=== PATIENT | female | born 1990 | race Caucasian/White ===

== ENCOUNTER 2018-07-07 14:35 | Inpatient (IN) | payer BC ==
[2018-07-07] MEDS ORDERED: LACTATED RINGER'S 1,000 ML IV (15:11)
[2018-07-07 15:18] LABS: ADD MAN DIFF? NO
[2018-07-07 15:21] LABS: BASOPHIL # 0.1 10^3/ul (0.0-0.1); BASOPHILS % 0.3 % (0.0-2.0); EOSINOPHILS # 0.2 10^3/ul (0.0-0.5); EOSINOPHILS % 0.9 % (0.0-7.0); HEMATOCRIT 40.3 % (37.0-47.0); LYMPHOCYTES # 1.6 10^3/ul (0.8-2.9); LYMPHOCYTES % 9.7 % (15.0-51.0); MEAN CORPUSCULAR HEMOGLOBIN 27.3 pg (29.0-33.0); MEAN CORPUSCULAR HGB CONC 32.3 g/dl (32.0-37.0); MEAN CORPUSCULAR VOLUME 84.5 fl (82.0-101.0); MONOCYTE # 1.1 10^3/ul (0.3-0.9); MONOCYTES % 6.5 % (0.0-11.0); NEUTROPHIL # 13.7 10^3/ul (1.6-7.5); NEUTROPHILS % 81.9 % (39.0-77.0); PLATELET COUNT 206 10^3/UL (140-415); RED BLOOD COUNT 4.77 10^6/ul (4.20-5.40); RED CELL DISTRIBUTION WIDTH 13.6 % (11.5-14.5)
[2018-07-07 15:21] LABS: WHITE BLOOD COUNT 16.7 10^3/ul (4.8-10.8)
[2018-07-07] MEDS ORDERED: IBUPROFEN 600 MG TAB PO (15:30)
[2018-07-07] MEDS ORDERED: MISOPROSTOL 200 MCG TAB PR ×2 (15:30→19:00)
[2018-07-07] MEDS ORDERED: BUTORPHANOL 2 MG INJ IV (15:30)
[2018-07-07] MEDS ORDERED: LIDOCAINE 1% (MPF) 30 ML INJ INJ (15:30)
[2018-07-07] MEDS ORDERED: CARBOPROST 250 MCG INJ IM ×2 (15:30→19:00)
[2018-07-07] MEDS ORDERED: METHYLERGONOVINE 0.2 MG INJ IM ×2 (15:30→19:00)
[2018-07-07] MEDS ORDERED: BUTORPHANOL 1 MG INJ IV (15:30)
[2018-07-07] MEDS ORDERED: OXYTOCIN 30 UNITS/LR 500 ML IV ×3 (15:30→19:00)
[2018-07-07 15:35] LABS: INR 0.92; PROTIME 12.4 Sec (11.9-14.9)
[2018-07-07 15:36] LABS: PARTIAL THROMBOPLASTIN TIME 28.7 Sec (23.0-35.0)
[2018-07-07] MEDS ORDERED: FENTAnyl 2MCG/ML-ROPIV 0.2% 100 ML (15:38)
[2018-07-07] MEDS: LACTATED RINGER'S 1,000 ML IV ×2 (16:08→16:13)
[2018-07-07 16:10] LABS: HEPATITIS B SURFACE ANTIGEN NEGATIVE (NEGATIVE)
[2018-07-07] MEDS ORDERED: FENTAnyl 2MCG/ML-ROPIV 0.2% 100 ML BAG EPI (16:30)
[2018-07-07] MEDS ORDERED: ONDANSETRON 4 MG INJ IV ×2 (16:30→19:00)
[2018-07-07] MEDS ORDERED: DIPHENHYDRAMINE 50 MG INJ IV ×2 (16:30→19:00)
[2018-07-07] MEDS ORDERED: NALOXONE (0.4 MG/ML) INJ IV (16:30)
[2018-07-07 17:15] LABS: RAPID PLASMA REAGIN NONREACTIVE (NR)
[2018-07-07] MEDS: OXYTOCIN 30 UNITS/LR 500 ML IV ×2 (18:53→18:55)
[2018-07-07] MEDS ORDERED: ACETAMINOPHEN 325 MG TAB PO ×2 (19:00)
[2018-07-07] MEDS ORDERED: ONDANSETRON 4 MG TAB PO (19:00)
[2018-07-07] MEDS ORDERED: SENNA/DOCUSATE NA (8.6MG/50MG) TAB PO (19:00)
[2018-07-07] MEDS ORDERED: HYDROCODONE/APAP (5/325) TAB PO ×2 (19:00)
[2018-07-07] MEDS ORDERED: DIPHENHYDRAMINE 25 MG CAP PO (19:00)
[2018-07-07] MEDS: BENZOCAINE 20% 56 ML SPRAY TOP (23:26)
[2018-07-07] MEDS: LANOLIN HPA 1 PKT TOP (23:26)
[2018-07-07] MEDS: DIBUCAINE 1% 30 GM OINT TOP (23:27)
[2018-07-07] MEDS: LACTATED RINGER'S 1,000 ML IV* (23:33)
[2018-07-07] MEDS: IBUPROFEN 800 MG TAB PO (23:50)
[2018-07-08] MEDS: LACTATED RINGER'S 1,000 ML IV* ×3 (02:54→18:54)
[2018-07-08] MEDS: IBUPROFEN 800 MG TAB PO ×4 (05:55→23:41)
[2018-07-08 08:21] LABS: ADD MAN DIFF? NO
[2018-07-08 08:36] LABS: BASOPHILS % 0.3 % (0.0-2.0); EOSINOPHILS # 0.2 10^3/ul (0.0-0.5); EOSINOPHILS % 1.5 % (0.0-7.0); HEMATOCRIT 32.1 % (37.0-47.0); HEMOGLOBIN 10.4 g/dl (12.0-16.0); LYMPHOCYTES % 16.2 % (15.0-51.0); MEAN CORPUSCULAR HEMOGLOBIN 27.8 pg (29.0-33.0); MEAN CORPUSCULAR HGB CONC 32.4 g/dl (32.0-37.0); MEAN CORPUSCULAR VOLUME 85.8 fl (82.0-101.0); MEAN PLATELET VOLUME 12.1 fl (7.4-10.4); MONOCYTE # 0.9 10^3/ul (0.3-0.9); MONOCYTES % 7.3 % (0.0-11.0); NEUTROPHIL # 9.1 10^3/ul (1.6-7.5); NEUTROPHILS % 73.7 % (39.0-77.0); PLATELET COUNT 164 10^3/UL (140-415); RED BLOOD COUNT 3.74 10^6/ul (4.20-5.40); RED CELL DISTRIBUTION WIDTH 13.9 % (11.5-14.5)
[2018-07-08 08:36] LABS: WHITE BLOOD COUNT 12.4 10^3/ul (4.8-10.8)
[2018-07-08] MEDS: BENZOCAINE 20% 56 ML SPRAY TOP (14:46)
[2018-07-08] MEDS: MAGNESIUM HYDROXIDE 30ML CUP PO (14:46)
[2018-07-09] MEDS: LACTATED RINGER'S 1,000 ML IV* ×2 (02:54→08:39)
[2018-07-09] MEDS: IBUPROFEN 800 MG TAB PO ×2 (05:09→11:57)
[2018-07-09] MEDS: VARICELLA VACCINE LIVE/PF 1,350 UNIT/0.5 ML ML SC* (08:39)
[2018-07-09] MEDS: DIPHTH/TET/ACEL PERTUSS (ADULT) 0.5 ML VIAL IM* (08:39)
[2018-07-09] MEDS: BENZOCAINE 20% 56 ML SPRAY TOP (08:39)
[2018-07-09] MEDS: MEASLES,MUMPS,RUBELLA VACCINE INJ SC* (08:39)
== END 2018-07-09 15:15 | disposition home or self-care (01) | DRG 807 ==
LOC: L-D 14:35 → PP1 21:05
PROVIDERS: Obstetrics & Gynecology
PROC: 10E0XZZ Delivery of Products of Conception, External Approach (ICD-10-PCS; principal; 2018-07-07)
PROC: 0UQMXZZ Repair Vulva, External Approach (ICD-10-PCS; 2018-07-07)
DX: O70.0 First degree perineal laceration during delivery (principal); Z37.0 Single live birth; O69.81X0 Labor and delivery complicated by cord around neck, without compression, not applicable or unspecified; Z3A.38 38 weeks gestation of pregnancy
CPT/HCPCS: 62319; 85025; 85610; 85730; 86592; 86850; 86900; 86901; 87340; 99464